=== PATIENT | female | born 1995 | race Caucasian/White ===

== ENCOUNTER 2017-05-10 19:25 | Emergency (ER) | payer OTHER ==
[~2017-05-10] VITALS: Ht 157.5 cm; Wt 51.6 kg
[~2017-05-10 19:25] MED LIST: AFEDITAB CR60 MG PO; ANTIVERT25 MG OR; BACTRIM DS1 TAB PO; BENADRYL25 MG OR; CIPROFLOXACN500 MG PO; CLARITIN10 M1 PO; CONCEPT OB PO; FERROUS SULF325 M2 PO; FLEXERIL OR; FLEXERIL5 M1 PO; FLINTSTONES GUM1 CHW PO; FLUZONE SPLT1 M1 IM; IBUPROFEN800 MG PO; IRON28 MG; IRON325 M1 PO; KEFLEX500 MG OR; METHYLDOPA250 MG PO; METOCLOPRAM10 MG OR; METROGEL VAG0.75 % VA; NAPROSYN500 MG OR; NO HOME MEDS; OBTREX DHA PO; OXYCOD-APAP1 TA1 PO; PRENATAL MV PO; PRENATAL1 TA1; PREVACID30 M2 PO; PROCARDIA10 MG PO; ULTRAM50 M1 PO; ULTRAM50 MG OR; VISTARIL25 MG PO; ZITHROMAX; ZITHROMAX250 MG PO; ZOFRAN ODT4 MG OR; [UNRECOGNIZED DRUG - OTHER] OR
[2017-05-10 20:08] LABS: URINE BILIRUBIN - DIPSTICK NEGATIVE (NEGATIVE); URINE BLOOD DIPSTICK NEGATIVE (NEGATIVE); URINE COLOR YELLOW; URINE GLUCOSE - DIPSTICK NEGATIVE (NEGATIVE); URINE KETONE NEGATIVE (NEGATIVE); URINE LEUK ESTERASE NEGATIVE (NEGATIVE); URINE NITRITE - DIPSTICK NEGATIVE (Negative); URINE PROTEIN - DIPSTICK NEGATIVE (NEG-TRACE); URINE SPECIFIC GRAVITY 1.025
[2017-05-10 20:09] LABS: URINE CLARITY CLEAR
[2017-05-10 20:13] LABS: HEMATOCRIT 38.8 % (37.0-47.0); HEMOGLOBIN 12.8 g/dl (12.0-16.0); IMMATURE GRANULOCYTES 0.3 % (0.0-1.0); MEAN CELL VOLUME 85.5 fL CALC (80.0-100.0); MEAN CORPUSCULAR HGB 28.2 pG CALC (26.0-32.0); NEUT# 10.39 thou/uL (2.00-7.15); RED BLOOD COUNT 4.54 mill/uL (4.20-5.60); RED CELL DISTRI WIDTH 12.4 % (11.5-15.5)
[2017-05-10 20:35] LABS: ALBUMIN 4.4 g/dL (3.2-5.0); ALKALINE PHOSPHATASE 47 u/l (38-126); ANION GAP 14 (6-22 (CALC)); BILIRUBIN, TOTAL 0.4 mg/dL (0.0-1.4); BUN 11 mg/dL (7-17); BUN/CREATININE RATIO 14 (12-20 (CALC)); CALCIUM 10.1 mg/dL (8.4-10.2); CARBON DIOXIDE 27 mmol/l (22-30); CHLORIDE 103 mmol/l (95-108); CREATININE 0.8 mg/dL (0.5-1.0); GFR > 60 ML/MIN (>=60 (CALC)); GFR FOR AFR.AMER. > 60 ML/MIN (>=60 (CALC)); GLUCOSE 125 mg/dL (65-105); POTASSIUM 3.7 mmol/l (3.5-5.1); SGOT/AST 18 u/l (14-36); SGPT/ALT 25 u/l (9-52); SODIUM 140 mmol/l (137-146); TOTAL PROTEIN 7.5 g/dL (6.3-8.2)
[2017-05-10 22:11] VITALS: BP 120/62
== END 2017-05-10 21:49 | disposition left against medical advice (07) | DRG 392 ==
LOC: ED 19:25
PROVIDERS: Emergency Medicine
DX: R10.33 Periumbilical pain (principal); R11.0 Nausea; Z91.19 Patient's noncompliance with other medical treatment and regimen

== ENCOUNTER 2017-10-04 10:00 | Emergency (ER) | payer OTHER ==
[~2017-10-04] VITALS: Ht 157.5 cm; Wt 50.0 kg
[2017-10-04 10:30] LABS: IMMATURE GRANULOCYTES 0.4 % (0.0-1.0); MEAN CELL VOLUME 87.4 fL CALC (80.0-100.0); MEAN CORPUSCULAR HGB 28.3 pG CALC (26.0-32.0); MEAN CORPUSCULAR HGB CONC 32.4 g/L CALC (32.0-36.0); NEUT# 18.51 thou/uL (2.00-7.15); RED BLOOD COUNT 5.3 mill/uL (4.20-5.60); RED CELL DISTRI WIDTH 12.4 % (11.5-15.5)
[2017-10-04 10:31] LABS: HEMATOCRIT 46.3 % (37.0-47.0)
[2017-10-04 10:57] LABS: ALKALINE PHOSPHATASE 64 u/l (38-126); BILIRUBIN, TOTAL 0.8 mg/dL (0.0-1.4); BUN 13 mg/dL (7-17); BUN/CREATININE RATIO 15 (12-20 (CALC)); CARBON DIOXIDE 22 mmol/l (22-30); CHLORIDE 102 mmol/l (95-108); CREATININE 0.9 mg/dL (0.5-1.0); GFR > 60 ML/MIN (>=60 (CALC)); GFR FOR AFR.AMER. > 60 ML/MIN (>=60 (CALC)); LIPASE 103 u/l (23-300); SGOT/AST 31 u/l (14-36); SGPT/ALT 32 u/l (9-52); SODIUM 142 mmol/l (137-146)
[2017-10-04 11:03] LABS: ANION GAP 23 (6-22 (CALC)); POTASSIUM 4.6 mmol/l (3.5-5.1)
[2017-10-04 11:43] LABS: URINE BLOOD DIPSTICK NEGATIVE (NEGATIVE); URINE CLARITY CLEAR; URINE COLOR YELLOW; URINE GLUCOSE - DIPSTICK NEGATIVE (NEGATIVE); URINE KETONE 15 mg/dL (NEGATIVE); URINE LEUK ESTERASE NEGATIVE (NEGATIVE); URINE NITRITE - DIPSTICK NEGATIVE (Negative); URINE PROTEIN - DIPSTICK TRACE mg/dL (NEG-TRACE); URINE SPECIFIC GRAVITY >=1.030; URINE UROBILINOGEN - DIPSTICK 0.2 E.U./dL (0.2)
[2017-10-04 11:45] LABS: URINE BILIRUBIN - DIPSTICK NEGATIVE (NEGATIVE)
[2017-10-04] MEDS ORDERED: ONDANSETRON4 MG PO (12:03)
[2017-10-04 12:26] VITALS: BP 110/63
== END 2017-10-04 12:15 | disposition home or self-care (01) | DRG 392 ==
LOC: ED 10:00
PROVIDERS: Family Medicine
DX: K52.9 Noninfective gastroenteritis and colitis, unspecified (principal); R10.84 Generalized abdominal pain; R11.2 Nausea with vomiting, unspecified; R19.7 Diarrhea, unspecified
CPT/HCPCS: Q9967

== ENCOUNTER 2018-01-24 05:37 | Emergency (ER) | payer OTHER ==
[~2018-01-24] VITALS: Ht 157.5 cm; Wt 50.6 kg
[~2018-01-24 05:37] MED LIST changes: +ONDANSETRON4 MG PO
[2018-01-24] MEDS ORDERED: AMOXICILLIN500 MG PO (06:03)
[2018-01-24 06:47] VITALS: BP 109/60
== END 2018-01-24 06:30 | disposition home or self-care (01) ==
LOC: ED 05:37
DX: J02.9 Acute pharyngitis, unspecified (principal)

== ENCOUNTER 2019-04-04 10:15 | Emergency (ER) | payer SELFPAY ==
[~2019-04-04] VITALS: Ht 157.5 cm; Wt 50.0 kg
[~2019-04-04 10:15] MED LIST changes: +AMOXICILLIN500 MG PO
[2019-04-04 10:18] VITALS: BP 120/75
[2019-04-04] MEDS ORDERED: CHERATUSSIN PO (10:29)
[2019-04-04] MEDS ORDERED: DOXYCYC MONO100 M2 PO (10:29)
== END 2019-04-04 10:42 | disposition home or self-care (01) | DRG 203 ==
LOC: ED 10:15
DX: J40 Bronchitis, not specified as acute or chronic (principal)

== ENCOUNTER 2021-06-07 06:31 | Emergency (ER) | payer MEDICAID ==
[~2021-06-07] VITALS: Ht 157.5 cm; Wt 57.0 kg
[~2021-06-07 06:31] MED LIST changes: +CHERATUSSIN PO; +DOXYCYC MONO100 M2 PO
[2021-06-07 07:14] LABS: HEMATOCRIT 40.7 % (37.0-47.0); HEMOGLOBIN 13.3 g/dl (12.0-16.0); IMMATURE GRANULOCYTES 0.4 % (0.0-5.0); MEAN CELL VOLUME 89.3 fL CALC (80.0-100.0); MEAN CORPUSCULAR HGB 29.2 pG CALC (26.0-32.0); MEAN CORPUSCULAR HGB CONC 32.7 g/dL CAL (32.0-36.0); NEUT# 2.56 thou/uL (2.00-7.15); RED BLOOD COUNT 4.56 mill/uL (4.20-5.60); RED CELL DISTRI WIDTH 12.5 % (11.5-15.5)
[2021-06-07] MEDS ORDERED: TAM75CAP PO (07:50)
== END 2021-06-07 08:47 | disposition home or self-care (01) ==
LOC: ED 06:31
PROVIDERS: Family Medicine
DX: J11.1 Influenza due to unidentified influenza virus with other respiratory manifestations (principal); Z20.822 Contact with and (suspected) exposure to COVID-19